=== PATIENT | female | born 1995 ===

== ENCOUNTER 2017-11-08 16:39 | Emergency (ER) | payer SELFPAY ==
[2017-11-08 17:23] LABS: Hematocrit 44.8 % (36.0-47.0); Mean Platelet Volume 7.6 fL (7.4-10.4); Red Blood Cell (RBC) Count 4.88 mill/uL (4.20-5.40); White Blood Cell (WBC) Count 3.5 thou/uL (4.8-10.8)
[2017-11-08 17:40] LABS: Band 10 % (5-11); Neutrophil 27 % (42-75)
[2017-11-08 17:42] LABS: ALT (SGPT) 9 U/L (8-55); AST (SGOT) 20 U/L (5-34); Alkaline Phosphatase 49 U/L (40-150); Anion Gap 13 mmol/L (10-20); BUN (Urea Nitrogen) 8 mg/dL (7.0-18.7); Bilirubin, Total 0.2 mg/dL (0.2-1.2); Calc. Creatinine Clearance 0 mL/min (70-130); Calcium 9.3 mg/dL (7.8-10.44); Carbon Dioxide 26 mmol/L (22-29); Chloride 102 mmol/L (98-107); Estimated GFR-MDRD Greater than 90; Globulin 3.4 g/dL (2.4-3.5); Protein, Total 7.7 g/dL (6.0-8.3)
--- NOTE | 2017-11-08 17:57 | RAD ---
CHEST PA AND LATERAL: 11/08/17 HISTORY: 21-year-old female with fever, cough and congestion. Moderate left hemidiaphragm elevation. No evidence of pneumonia. Heart size is normal. No pleural eff usion. IMPRESSION: Moderate left hemidiaphragm elevation. No evidence for pneumonia. POS: [facility]
== END 2017-11-08 18:59 | disposition home or self-care (01) ==
LOC: ERS 16:39
DX: J11.1 Influenza due to unidentified influenza virus with other respiratory manifestations (principal); J45.909 Unspecified asthma, uncomplicated; F32.9 Major depressive disorder, single episode, unspecified; Z79.899 Other long term (current) drug therapy
CPT/HCPCS: 36415; 71020; 80053; 85025; 94640; J7620